=== PATIENT | male | born 1965 | race Caucasian/White ===

== ENCOUNTER 2017-09-27 11:19 | Emergency (ER) | payer OTHER ==
[~2017-09-27] VITALS: Ht 188 cm; Wt 83.9 kg
[2017-09-27 11:23] VITALS: BP 138/75
--- NOTE | 2017-09-27 12:07 | ED INFLUENZA/URI COMPLAINT ---
History of Present Illness General Chief Complaint: Upper Respiratory Sx/Fever Stated Complaint: COUGHING Source: patient Exam Limitations: no limitations Vital Signs & Intake/Output Vital Signs & Intake/Output Vital Signs Date Time Temp Pulse Resp B/P B/P Pulse O2 O2 Flow FiO2 Mean Ox Delivery Rate 09/27 1123 98.6 84 18 138/75 98 Room Air Allergies Coded Allergies: No Known Allergies (09/27/17) Triage Note: 52 YO MALE TO TRIAGE C/O DRY COUGH X1 WEEK. Triage Nurses Notes Reviewed? yes HPI: 52M no PMH, former smoker, presenting with 3 weeks of sinus congestion, post- nasal drip, and cough with thin white sputum. Denies fever, chills, headache, stiff neck, sore throat, chest pain, palpitations, SOB, abdominal pain, diarrhea , dysuria. Has not taken anything OTC to help. Past History Travel History Traveled to [place] past 21 day No Medical History Any Pertinent Medical History? 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 No Review of Systems Review of Systems Constitutional: Reports: no symptoms. EENTM: Reports: no symptoms. Respiratory: Reports: no symptoms. Cardiovascular: Reports: no symptoms. GI: Reports: no symptoms. Genitourinary: Reports: no symptoms. Musculoskeletal: Reports: no symptoms. Skin: Reports: no symptoms. Neurological/Psychological: Reports: no symptoms. Hematologic/Endocrine: Reports: no symptoms. Immunologic/Allergic: Reports: no symptoms. All Other Systems: Reviewed and Negative Physical Exam Physical Exam General Appearance: well developed/nourished, no apparent distress Head: atraumatic, normal appearance Eyes: Bilateral: normal appearance. Ears, Nose, Throat: normal ENT inspection, moist mucous membrane, hearing grossly normal, Tympanic normal, pharynx normal Neck: normal inspection, supple, full range of motion Respiratory: normal breath sounds, chest non-tender, no respiratory distress Cardiovascular: regular rate/rhythm Gastrointestinal: soft, non-tender Back: normal inspection, normal range of motion Extremities: normal inspection Neurologic/Psych: awake, alert, oriented x 3, normal mood/affect Skin: intact, normal color, warm/dry Core Measures Sepsis Present: No Sepsis Focused Exam Completed? No Progress Differential Diagnosis: influenza, meningitis, neutropenia, otitis, pneumonia, pharyngitis, sinusitis Plan of Care: Orders Procedure Date/time Status THROAT CULTURE W/QUICK STREP 09/27 1207 Active Initial ED EKG: none Departure Departure Disposition: HOME OR SELF CARE Condition: Stable Clinical Impression Primary Impression: Post-nasal drip Secondary Impressions: Acute sinusitis Referrals: Patient Has No Primary Care Dr (PCP/Family) Additional Instructions: Follow up with your PCP. You can take Afrin, cough drops, and a nasal decongestant to help with symptoms. Return if new or worsening symptoms. Departure Forms: Customer Survey General Discharge Information
--- NOTE | 2017-09-27 13:09 | RADIOLOGY REPORT ---
EXAMINATION: XR CHEST CLINICAL INFORMATION: Cough, left-sided coarse sounds in midlung. Evaluate for pneumonia. COMPARISON: None TECHNIQUE: PA and lateral views (3 images) of the chest are obtained. FINDINGS: The heart is normal in size. There is mild perihilar peribronchial thickening. There is no congestion or focal consolidation. There is an old healed left clavicle fracture. The bony thorax is otherwise unremarkable. IMPRESSION: No acute cardiopulmonary process.
== END 2017-09-27 14:36 ==
LOC: ERH 11:19
DX: J01.90 Acute sinusitis, unspecified (principal); Z87.891 Personal history of nicotine dependence
CPT/HCPCS: 71046